=== PATIENT | female | born 1940 | race Caucasian/White ===

== ENCOUNTER 2019-12-20 12:27 | Inpatient (IN) | payer MEDICARE, MEDICAID ==
[2019-12-20] MEDS ORDERED: Ketorolac 30 MG/ML SDV IVPUSH ONE (13:18)
[2019-12-20 13:23] LABS: HEMOGLOBIN A1C 7.5 % (<5.7)
--- NOTE | 2019-12-20 14:43 | EDM.PDOC ---
ED HPI GENERAL MEDICAL PROBLEM - General Stated Complaint: KNEE PAIN Time Seen by Provider: 12/20/19 12:40 Source of Information: Reports: Patient History Limitations: Reports: No Limitations - History of Present Illness INITIAL COMMENTS - FREE TEXT/NARRATIVE: c/o fall pt lives with her brother who cannot walk, pt states she is able to walk, does not use a walker or a cane slept in until late morning, fell trying to get up, daughter tried to get pt up but she could not weight bear, c/o R knee pain pt states she has arthritis in both knees comes into ED in [facility] has no new c/o except R knee pain, pt did see Dr Pablo 3d ago with c/o abd pain and obtained labs (no XR) and put her on Bactrim DS and Flagyl which pt has been taking, pt states she still has pain across her lower abd, is having normal BMs including today, abd pain better after BM no f/c/d at home, no n/v, appetite has been fine - Related Data Allergies Allergy/AdvReac Type Severity Reaction Status Date / Time aspirin Allergy Unknown Nausea and Verified 12/20/19 14:24 Vomiting Penicillins Allergy Unknown Rash Verified 12/20/19 14:24 Home Meds: Home Meds Balsalazide [Colazal] 750 mg PO TID 09/28/14 [History] Levothyroxine 75 mcg PO ACBREAKFAST 09/28/14 [History] Simvastatin 40 mg PO DAILY 09/28/14 [History] carvediloL [Carvedilol] 3.125 mg PO DAILY 09/28/14 [History] Spironolactone [Aldactone] 12.5 mg PO DAILY 10/20/14 [History] FLUoxetine [PROzac] 10 mg PO DAILY 02/04/15 [History] metFORMIN HCl [Metformin HCl] 1,000 mg PO BID 01/12/16 [History] Cyanocobalamin (Vitamin B-12) [Vitamin B-12] 5,000 mcg PO BEDTIME 12/20/19 [History] Multivit-Min/FA/Lycopen/Lutein [Centrum Silver Tablet] 1 tab PO DAILY 12/20/19 [History] Omeprazole 20 mg PO DAILY 12/20/19 [History] SitaGLIPtin [Januvia] 50 mg PO DAILY 06/26/20 [History] Sulfamethoxazole/Trimethoprim [Bactrim Ds Tablet] 1 tab PO BID 12/20/19 [History] hydrOXYzine pamoate [Hydroxyzine Pamoate] 25 mg PO BEDTIME 12/20/19 [History] metroNIDAZOLE [Flagyl] 500 mg PO TID 12/20/19 [History] Past Medical History HEENT History: Reports: Hard of Hearing, Other (See Below) 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 Cardiovascular History: Reports: High Cholesterol, Hypertension, Prior Cardiac Arrest Respiratory History: Reports: Pneumonia, Recurrent Gastrointestinal History: Reports: Irritable Bowel Syndrome, Other (See Below) Other Gastrointestinal History: crohn's Dz Musculoskeletal History: Reports: Fracture Neurological History: Reports: Migraines, Seizure Psychiatric History: Reports: Anxiety, Depression Endocrine/Metabolic History: Reports: Diabetes, Type II, Hypoparathyroidism Oncologic (Cancer) History: Reports: Breast - Past Surgical History Female Surgical History: Reports: Mastectomy Social & Family History - Tobacco Use Smoking Status *Q: Never Smoker - Caffeine Use Caffeine Use: Reports: None - Recreational Drug Use Recreational Drug Use: No ED ROS GENERAL - Review of Systems Review Of Systems: See Below Constitutional: Reports: No Symptoms HEENT: Reports: No Symptoms Respiratory: Reports: No Symptoms Cardiovascular: Reports: No Symptoms Endocrine: Reports: No Symptoms GI/Abdominal: Reports: Abdominal Pain. Denies: Constipation, Diarrhea, Nausea, Vomiting : Reports: No Symptoms Musculoskeletal: Reports: Other (R knee pain) Skin: Reports: No Symptoms Neurological: Reports: No Symptoms Psychiatric: Reports: No Symptoms Hematologic/Lymphatic: Reports: No Symptoms Immunologic: Reports: No Symptoms ED EXAM, GENERAL - Physical Exam Exam: See Below Exam Limited By: No Limitations General Appearance: Alert, WD/WN, No Apparent Distress Ears: Normal External Exam, Normal Canal, Hearing Grossly Normal Nose: Normal Inspection, Normal Mucosa, No Blood Throat/Mouth: Normal Inspection, Normal Voice, No Airway Compromise Head: Atraumatic, Normocephalic Neck: Normal Inspection, Supple, Non-Tender, Full Range of Motion. No: Lymphadenopathy (R), Lymphadenopathy (L) Respiratory/Chest: No Respiratory Distress, Lungs Clear, Normal Breath Sounds, No Accessory Muscle Use, Chest Non-Tender Cardiovascular: Regular Rate, Rhythm, No Edema, No Gallop, No JVD, No Rub, Other (2/6 ESAU at LSB) GI/Abdominal: Normal Bowel Sounds, Soft, Other (1+ tender in the suprapubic area, slight tender in LLQ, NT elsewhere, ND). No: Distended, Guarding, Rigid, Rebound, Hepatomegaly, Splenomegaly Back Exam: Normal Inspection, Full Range of Motion. No: CVA Tenderness (R), CVA Tenderness (L) Extremities: No Pedal Edema, Other (moderate effusion at R knee, generalized tender anteriorly as well as medial and lateral, no ecchymosis, no definite localized bony tenderness) Neurological: Alert, Oriented, CN II-XII Intact, No Motor/Sensory Deficits Psychiatric: Normal Affect, Normal Mood Skin Exam: Warm, Dry, Intact, Normal Color, No Rash Lymphatic: No Adenopathy Course - Vital Signs Last Recorded V/S: Last Vital Signs Temp 36.0 C L 12/20/19 12:27 Pulse 79 12/20/19 12:27 Resp 16 12/20/19 12:27 BP 104/58 L 12/20/19 12:27 Pulse Ox 94 L 12/20/19 12:27 - Orders/Labs/Meds Orders: Active Orders 24 hr Category Date Time Status Abdomen Pelvis wo Cont [CT] Stat Exams 12/20/19 13:34 Taken Knee 3V Rt [CR] Stat Exams 12/20/19 12:38 Ordered Sodium Chloride 0.9% [Saline Flush] Med 12/20/19 14:22 Active 10 ml FLUSH ASDIRECTED PRN Medication Orders Sodium Chloride (Saline Flush) 10 ml FLUSH ASDIRECTED PRN PRN Reason: Keep Vein Open Labs: Laboratory Tests 12/20/19 12/20/19 12/20/19 Range/Units 13:05 13:05 13:05 WBC (4.5-12.0) X10-3/uL RBC (3.23-5.20) x10(6)uL Hgb (11.5-15.5) g/dL Hct (30.0-51.3) % MCV (80-96) fL MCH (27.7-33.6) pg MCHC (32.2-35.4) g/dL RDW (11.5-15.5) % Plt Count (125-369) X10(3)uL MPV (7.4-10.4) fL Neut % (Auto) (46-82) % Lymph % (Auto) (13-37) % [place] % (Auto) (4-12) % Eos % (Auto) (1.0-5.0) % Baso % (Auto) (0-2) % Neut # (Auto) (1.6-8.3) # Lymph # (Auto) (0.6-5.0) # [place] # (Auto) (0.0-1.3) # Eos # (Auto) (0.0-0.8) # Baso # (Auto) (0.0-0.2) # Sodium 132 L (135-145) mmol/L Potassium 3.6 (3.5-5.3) mmol/L Chloride 97 L (100-110) mmol/L Carbon Dioxide 23 (21-32) mmol/L BUN 6 L (7-18) mg/dL Creatinine 1.0 (0.55-1.02) mg/dL Est Cr Clr Drug Dosing TNP Estimated GFR (MDRD) 54 L (>60) BUN/Creatinine Ratio 6.0 L (9-20) Glucose 256 H (80-116) mg/dL Hemoglobin A1c 7.5 H (<5.7) % Calcium 8.5 L (8.6-10.2) mg/dL Total Bilirubin 0.4 (0.1-1.3) mg/dL AST 21 (5-25) IU/L ALT 18 (12-36) U/L Alkaline Phosphatase 108 (56-112) IU/L Troponin I (4.0-60.3) pg/mL C-Reactive Protein 12.1 H* (0.5-0.9) mg/dL Total Protein 7.4 (6.0-8.0) g/dL Albumin 2.9 L (3.2-4.6) g/dL Globulin 4.5 g/dL Albumin/Globulin Ratio 0.6 Urine Color (YELLOW) Urine Appearance (CLEAR) Urine pH (5.0-6.5) Ur Specific [place] (1.010-1.025) Urine Protein (NEGATIVE) mg/dL Urine Glucose (UA) (NORMAL) mg/dL Urine Ketones (NEGATIVE) mg/dL Urine Occult Blood (NEGATIVE) Urine Nitrite (NEGATIVE) Urine Bilirubin (NEGATIVE) Urine Urobilinogen (NEGATIVE) mg/dL Ur Leukocyte Esterase (NEGATIVE) U Hyaline Cast (Auto) (NS) Urine RBC (0-5) Urine WBC (0-5) Ur Squamous Epith Cells (NS,R,O) Urine Bacteria (NS) 12/20/19 12/20/19 12/20/19 Range/Units 13:05 13:05 14:36 WBC 8.8 (4.5-12.0) X10-3/uL RBC 4.28 (3.23-5.20) x10(6)uL Hgb 11.7 (11.5-15.5) g/dL Hct 36.5 (30.0-51.3) % MCV 85.2 (80-96) fL MCH 27.4 L (27.7-33.6) pg MCHC 32.2 (32.2-35.4) g/dL RDW 13.6 (11.5-15.5) % Plt Count 380 H (125-369) X10(3)uL MPV 7.8 (7.4-10.4) fL Neut % (Auto) 68.8 (46-82) % Lymph % (Auto) 18.1 (13-37) % [place] % (Auto) 12.1 H (4-12) % Eos % (Auto) 0 L (1.0-5.0) % Baso % (Auto) 1 (0-2) % Neut # (Auto) 6.0 (1.6-8.3) # Lymph # (Auto) 1.6 (0.6-5.0) # [place] # (Auto) 1.1 (0.0-1.3) # Eos # (Auto) 0.0 (0.0-0.8) # Baso # (Auto) 0.1 (0.0-0.2) # Sodium (135-145) mmol/L Potassium (3.5-5.3) mmol/L Chloride (100-110) mmol/L Carbon Dioxide (21-32) mmol/L BUN (7-18) mg/dL Creatinine (0.55-1.02) mg/dL Est Cr Clr Drug Dosing Estimated GFR (MDRD) (>60) BUN/Creatinine Ratio (9-20) Glucose (80-116) mg/dL Hemoglobin A1c (<5.7) % Calcium (8.6-10.2) mg/dL Total Bilirubin (0.1-1.3) mg/dL AST (5-25) IU/L ALT (12-36) U/L Alkaline Phosphatase (56-112) IU/L Troponin I 10.8 (4.0-60.3) pg/mL C-Reactive Protein (0.5-0.9) mg/dL Total Protein (6.0-8.0) g/dL Albumin (3.2-4.6) g/dL Globulin g/dL Albumin/Globulin Ratio Urine Color Yellow (YELLOW) Urine Appearance Clear (CLEAR) Urine pH 5.0 (5.0-6.5) Ur Specific [place] 1.015 (1.010-1.025) Urine Protein Negative (NEGATIVE) mg/dL Urine Glucose (UA) >1000 H (NORMAL) mg/dL Urine Ketones 15 H (NEGATIVE) mg/dL Urine Occult Blood Trace (NEGATIVE) Urine Nitrite Negative (NEGATIVE) Urine Bilirubin Negative (NEGATIVE) Urine Urobilinogen Normal (NEGATIVE) mg/dL Ur Leukocyte Esterase Small H (NEGATIVE) U Hyaline Cast (Auto) Rare H (NS) Urine RBC 0-5 (0-5) Urine WBC 0-5 (0-5) Ur Squamous Epith Cells Rare (NS,R,O) Urine Bacteria Few H (NS) Meds: Medications Generic Name Dose Route Start Last Admin Trade Name Freq PRN Reason Stop Dose Admin Sodium Chloride 10 ml 12/20/19 14:22 Saline Flush FLUSH ASDIRECTED PRN Keep Vein Open Discontinued Medications Generic Name Dose Route Start Last Admin Trade Name Freq PRN Reason Stop Dose Admin Ketorolac Tromethamine 15 mg 12/20/19 13:18 12/20/19 14:17 Toradol IVPUSH 12/20/19 13:19 15 mg ONETIME ONE Administration - Re-Assessments/Exams Free Text/Narrative Re-Assessment/Exam: 12/20/19 15:51 d/w Dr Pablo who accepted her in admission and will see her at 5p after clinic d/w dtr Faby at [phone] Pablo to call her after he does an assessment R knee film with no fx, large effusion and DJD as per Dr Caldwell. Faby reports that pt had been getting injections and that the possibility of TKR had been discussed CT abd/pelvis with IV contrast shows acute diverticulitis without abscess Faby aware that an internal joint derangement cannot be excluded Faby reports that pt "was not tolerating" her current antbxs pt states she is a full code Departure - Departure Time of Disposition: 15:54 Disposition: Admitted As Inpatient 68 Condition: Fair Clinical Impression: Acute diverticulitis, Elevated C-reactive protein (CRP), Right knee sprain, Fall from bed, initial encounter, General weakness, Unable to stand up, Unable to walk, Hyponatremia, Hypoalbuminemia, Dehydration, Ketonuria, Thrombocytosis, Effusion, right knee - Discharge Information *PRESCRIPTION DRUG MONITORING PROGRAM REVIEWED*: Not Applicable *COPY OF PRESCRIPTION DRUG MONITORING REPORT IN PATIENT HONEY: Not Applicable Referrals: Eric Lopez MD [Primary Care Provider] - Sepsis Event Note (ED) - Evaluation Sepsis Screening Result: No Definite Risk - Focused Exam Vital Signs: Vital Signs Temp Pulse Resp BP Pulse Ox 12/20/19 12:27 36.0 C L 79 16 104/58 L 94 L - My Orders Last 24 Hours: My Active Orders 12/20/19 12:38 Knee 3V Rt [CR] Stat 12/20/19 13:34 Abdomen Pelvis wo Cont [CT] Stat 12/20/19 14:22 Sodium Chloride 0.9% [Saline Flush] 10 ml FLUSH ASDIRECTED PRN - Assessment/Plan Last 24 Hours: My Active Orders 12/20/19 12:38 Knee 3V Rt [CR] Stat 12/20/19 13:34 Abdomen Pelvis wo Cont [CT] Stat 12/20/19 14:22 Sodium Chloride 0.9% [Saline Flush] 10 ml FLUSH ASDIRECTED PRN
[2019-12-20] MEDS ORDERED: Ondansetron 4 MG/2 ML SDV IVPUSH PRN (16:01)
[2019-12-20] MEDS: Sodium Chloride 0.9% 10 ML Syringe FLUSH PRN (16:20)
--- NOTE | 2019-12-20 16:41 | CT ---
INDICATION: Diagnosis is acute diverticulitis 3 days ago in clinic, on antibiotics. Fell today, still lower abdominal pain, left lower quadrant. COMPUTERIZED TOMOGRAPHY OF THE ABDOMEN AND PELVIS WITHOUT CONTRAST: Spiral 2.5 mm axial sections were obtained through the abdomen without contrast with sagittal and coronal reconstructions 12/20/19 - no comparisons. Total exam DLP was 679.21 mGy-cm. No consolidating pneumonia or effusion was seen at the lower lung skelton and pleural spaces included on this study. There are some minimal probable fibrotic changes at the lung bases, very minimal on the left and more prominent on the right - minimal patchy pneumonia is difficult to exclude on the right. Some minimal calcified pleural plaque is noted on the right at the lung base- diaphragm. The heart is enlarged. Minimal thickening of the pericardium is noted. Calcifications are noted in the aorta. No aneurysmal dilatation of the aorta was noted. The kidneys have a fairly normal appearance without evidence of obstructive uropathy. The gallbladder is absent, compatible with history of its removal with clips at the cystic duct. The liver, spleen, and for the most part pancreas, appeared normal. Adrenal glands were unremarkable. No retroperitoneal mass was seen. Retroperitoneal lymphadenopathy is mild and nonspecific. The appendix is absent, compatible with history of its removal. No evidence of bowel obstruction or free air was noted. There was a right inguinal hernia including only fat of small to moderate size. Urinary bladder was unremarkable. At the level of the sigmoid colon in the midline and to the right slightly, there is some fat stranding with thickening of the wall, suggesting a very localized area of diverticulitis. No evidence of definite abscess formation was seen, although there does appear to be some minimal fluid extending towards the right inguinal area slightly. No additional fluid collections, organomegaly or mass lesions were identified in the abdomen or pelvis. IMPRESSION: 1. Localized area of sigmoid diverticulitis with some very minimal localized pericolonic inflammatory disease - localized peritonitis with some minimal extension towards the right inguinal area. No abscess formation seen - no free air seen. 2. Patient is post cholecystectomy, appendectomy and right mastectomy with some probable fibrotic changes at the right lung base. 3. Minimal ASD. 4. ASHD with cardiomegaly. Report was called to Dr. Lebron at 1518 hours. [facility]
[2019-12-20] MEDS: D5 1/2 NS w/ 20 mEq/L KCl 1,000 ML IV SCH (16:44)
--- NOTE | 2019-12-20 16:44 | CR ---
INDICATION: Fall, pain and swelling, not able to weight-bear. RIGHT KNEE: Four images of the right knee were obtained 12/20/19 - no comparisons. A large knee joint effusion is suggested - increased density is noted in the suprapatellar bursa. There are some minimal hypertrophic degenerative changes at the patellofemoral joint with some narrowing of the lateral patellofemoral joint space of minimal degree. A definite acute fracture or dislocation was not identified. Bone density appeared to be fairly normal. IMPRESSION: Large right knee joint effusion. Report was called to Dr. Lebron at 1518 hours. [facility]
[2019-12-20] MEDS: Enoxaparin 40 MG/0.4 ML Syringe SUBCUT SCH (17:15)
[2019-12-20] MEDS: metFORMIN 1,000 MG Tab PO SCH (21:20)
[2019-12-20] MEDS: Cyanocobalamin (Vitamin B12) 1,000 MCG Tab PO SCH (21:20)
[2019-12-20] MEDS: hydrOXYzine HCl 25 MG Tab PO SCH (21:20)
[2019-12-21] MEDS: D5 1/2 NS w/ 20 mEq/L KCl 1,000 ML IV SCH ×2 (01:29→12:07)
[2019-12-21] MEDS: Levothyroxine 75 MCG Tab PO SCH (06:16)
[2019-12-21] MEDS: Pantoprazole 40 MG Tab.CR PO SCH (06:16)
[2019-12-21] MEDS: Spironolactone 25 MG Tab PO SCH (08:23)
[2019-12-21] MEDS: metFORMIN 1,000 MG Tab PO SCH ×2 (08:24→21:11)
[2019-12-21] MEDS: FLUoxetine 10 MG Cap PO SCH (08:26)
[2019-12-21] MEDS: Simvastatin 40 MG Tab PO SCH (08:26)
[2019-12-21] MEDS: Multivitamins with Iron/Calcium/Folic Acid/Minerals Tab PO SCH (08:26)
[2019-12-21] MEDS: Carvedilol 3.125 MG Tab PO SCH (08:27)
[2019-12-21] MEDS: metroNIDAZOLE/Normal Saline 500 MG in Premix Bag 1 BAG IV SCH ×2 (09:50→16:10)
[2019-12-21] MEDS ORDERED: Levofloxacin/Dextrose 5%-Water 500 MG in Premix Bag 1 BAG IV SCH (10:00)
[2019-12-21] MEDS: Levofloxacin/Dextrose 5%-Water 250 MG in Premix Bag 1 BAG IV SCH (10:55)
[2019-12-21] MEDS: predniSONE 20 MG Tab PO SCH (12:07)
--- NOTE | 2019-12-21 12:52 | PN ---
DATE SEEN: 12/21/2019 SUBJECTIVE: Jailyn Horta is a 79-year-old female admitted due to concerns acute right knee pain with soft tissue swelling and effusion, unresponsive left lower quadrant pain, and diverticulitis. CT confirmatory. Feeling some better. Pain is improved. Has stool. There has been no fever or other constitutional symptoms. Pain continues in right knee. OBJECTIVE: VITAL SIGNS: 36.7, 80, 110/55, 73 mean blood pressure, 16 is the respirations, and O2 saturation 95%. GENERAL: Appears more comfortable. HEENT: Mouth and oropharynx are clear. NECK: Benign. Thyroid small. CHEST: On auscultation, clear in all lung skelton. HEART: Occasional ectopy. Soft murmur. ABDOMEN: Mild persistent left lower quadrant pain. EXTREMITIES: Knee less warm. ASSESSMENT: 1. Acute diverticulitis. 2. Acute knee pain. PLAN: We will add a course of prednisone. Uric acid was normal. Inflammatory is likely the more issue than infectious. Complementary care and well being. Continue antibiotic therapy. /[id number] /WILIAN
[2019-12-21] MEDS: Acetaminophen 500 MG Tab PO SCH ×2 (13:21→21:11)
[2019-12-21] MEDS: Enoxaparin 40 MG/0.4 ML Syringe SUBCUT SCH (16:10)
[2019-12-21] MEDS: hydrOXYzine HCl 25 MG Tab PO SCH (21:03)
[2019-12-21] MEDS: Cyanocobalamin (Vitamin B12) 1,000 MCG Tab PO SCH (21:03)
[2019-12-21] MEDS: Diclofenac Sodium 1% Gel 100 GM Tube TOP SCH (21:51)
[2019-12-22] MEDS: D5 1/2 NS w/ 20 mEq/L KCl 1,000 ML IV SCH ×2 (00:28→08:35)
[2019-12-22] MEDS: metroNIDAZOLE/Normal Saline 500 MG in Premix Bag 1 BAG IV SCH ×3 (00:33→16:01)
[2019-12-22] MEDS: Pantoprazole 40 MG Tab.CR PO SCH (06:22)
[2019-12-22] MEDS: Levothyroxine 75 MCG Tab PO SCH (06:22)
[2019-12-22] MEDS: Acetaminophen 500 MG Tab PO SCH ×3 (08:07→20:59)
[2019-12-22] MEDS: Diclofenac Sodium 1% Gel 100 GM Tube TOP SCH ×2 (08:09→21:05)
[2019-12-22] MEDS: metFORMIN 1,000 MG Tab PO SCH ×2 (08:09→21:03)
[2019-12-22] MEDS: Spironolactone 25 MG Tab PO SCH (08:09)
[2019-12-22] MEDS: Carvedilol 3.125 MG Tab PO SCH (08:10)
[2019-12-22] MEDS: Simvastatin 40 MG Tab PO SCH (08:11)
[2019-12-22] MEDS: Multivitamins with Iron/Calcium/Folic Acid/Minerals Tab PO SCH (08:11)
[2019-12-22] MEDS: FLUoxetine 10 MG Cap PO SCH (08:11)
[2019-12-22] MEDS: predniSONE 20 MG Tab PO SCH (08:16)
[2019-12-22] MEDS: Levofloxacin/Dextrose 5%-Water 250 MG in Premix Bag 1 BAG IV SCH (09:45)
[2019-12-22] MEDS: Sodium Chloride 0.9% 10 ML Syringe FLUSH PRN ×2 (10:00→15:57)
[2019-12-22] MEDS: Enoxaparin 40 MG/0.4 ML Syringe SUBCUT SCH (15:52)
[2019-12-22] MEDS: hydrOXYzine HCl 25 MG Tab PO SCH (20:59)
[2019-12-22] MEDS: Cyanocobalamin (Vitamin B12) 1,000 MCG Tab PO SCH (20:59)
[2019-12-23] MEDS: metroNIDAZOLE/Normal Saline 500 MG in Premix Bag 1 BAG IV SCH ×3 (00:28→17:23)
[2019-12-23] MEDS: Pantoprazole 40 MG Tab.CR PO SCH (06:26)
[2019-12-23] MEDS: Levothyroxine 75 MCG Tab PO SCH (06:26)
[2019-12-23] MEDS: Sodium Chloride 0.9% 10 ML Syringe FLUSH PRN ×2 (09:25→17:23)
[2019-12-23] MEDS: predniSONE 20 MG Tab PO SCH (09:31)
[2019-12-23] MEDS: Acetaminophen 500 MG Tab PO SCH ×3 (09:31→20:59)
[2019-12-23] MEDS: FLUoxetine 10 MG Cap PO SCH (09:33)
[2019-12-23] MEDS: Simvastatin 40 MG Tab PO SCH (09:33)
[2019-12-23] MEDS: Spironolactone 25 MG Tab PO SCH (09:33)
[2019-12-23] MEDS: metFORMIN 1,000 MG Tab PO SCH ×2 (09:33→18:52)
[2019-12-23] MEDS: Carvedilol 3.125 MG Tab PO SCH (09:34)
[2019-12-23] MEDS: Multivitamins with Iron/Calcium/Folic Acid/Minerals Tab PO SCH (09:34)
[2019-12-23] MEDS: Diclofenac Sodium 1% Gel 100 GM Tube TOP SCH ×2 (09:36→21:01)
[2019-12-23] MEDS: Levofloxacin/Dextrose 5%-Water 250 MG in Premix Bag 1 BAG IV SCH (10:40)
[2019-12-23] MEDS: Enoxaparin 40 MG/0.4 ML Syringe SUBCUT SCH (17:23)
[2019-12-23] MEDS: hydrOXYzine HCl 25 MG Tab PO SCH (20:59)
[2019-12-23] MEDS: Cyanocobalamin (Vitamin B12) 1,000 MCG Tab PO SCH (21:00)
[2019-12-24] MEDS: metroNIDAZOLE/Normal Saline 500 MG in Premix Bag 1 BAG IV SCH ×2 (00:30→08:44)
[2019-12-24] MEDS: Sodium Chloride 0.9% 10 ML Syringe FLUSH PRN (01:32)
--- NOTE | 2019-12-24 01:57 | HP ---
ADMISSION DATE: 12/20/2019 REASON FOR VISIT: Persistent left lower quadrant pain secondary to diverticulitis, acute right knee pain. HISTORY OF PRESENT ILLNESS: Jailyn Horta is a 79-year-old female, admitted through [facility]. She was seen a few days ago with left lower quadrant pain and acute suspected diverticulitis clinically without complicating processes or fever. Has been on oral Bactrim and metronidazole. Had a fall, lives with her brother, fell onto a hard floor, but not a dramatic injury. Pain and discomfort were present. Injury was self-limiting in nature. MEDICATIONS: Present daily medications include: 1. Bactrim DS 1 p.o. b.i.d. for diverticulitis. 2. Flagyl 500 mg 1 p.o. t.i.d. for diverticulitis. 3. Colazal 750 one p.o. t.i.d. for colitis. 4. Fluoxetine 10 mg 1 p.o. daily for mood stabilizer. 5. Vistaril 25 t.i.d. p.r.n. for anxiety. 6. Januvia 50 mg 1 p.o. daily for NIDDM. 7. Levothyroxine 75 mcg 1 p.o. daily for hypothyroidism. 8. Metformin 1000 mg 1 p.o. b.i.d. for NIDDM. 9. Carvedilol 3.125 mg b.i.d. for heart failure. 10.Prilosec 20 mg 1 p.o. daily for GERD. 11.Zocor 40 mg 1 p.o. daily for hyperlipidemia. 12.Aldactone 25 mg half tablet once daily for fluid/heart. 13.Voltaren gel p.r.n. knees. 14.Albuterol inhaler p.r.n. PAST HEALTH: Significant for surgical procedures including previous cervical disk surgery, cholecystectomy, section, appendectomy, right breast mastectomy, left breast biopsy benign, and bilateral cataract surgery. Chronic illnesses include hypertension, hyperlipidemia, and diabetes mellitus. SOCIAL HISTORY: Lives with her brother. Attended to by her niece. Never smoked. No chewing tobacco. No alcohol consumption. FAMILY HISTORY: Negative for early heart disease, diabetes mellitus, or inheritable cancers. REVIEW OF SYSTEMS: CONSTITUTIONAL: Feeling poorly. Right knee pain. Left abdominal pain. EYES: Sees well. Cataract surgery. EARS: Some difficulty in crowds. Mild tinnitus. OROPHARYNX: Intact dentition. GASTROINTESTINAL: Chronic colitis, stable. GENITOURINARY: Voiding comfortably. CARDIOVASCULAR: Denies chest pain, palpitations, or history of congestive heart failure. RESPIRATORY: No chronic cough. GASTROINTESTINAL: Left lower abdominal pain. SKIN: No lesions, eruptions, or moles. ENDOCRINE: No excessive thirst or urination. ALLERGIES: Noted. PHYSICAL EXAMINATION: VITAL SIGNS: 1.5 meters, 72 kg, 36.7, 70, 112/61, 16, and 95%. GENERAL: Appears comfortable. Soft spoken. Intelligible. HEENT: Funduscopic benign. Conjunctivae clear. Bright tympanic membranes. Clear nasal discharge. Mouth and oropharynx are clear. NECK: Benign. Thyroid small. CHEST: On auscultation, clear in all lung skelton. HEART: Occasional ectopy. Soft murmur. Regular rate and rhythm. ABDOMEN: Benign. Surgical scars present in right lower quadrant/lower abdomen. Acutely tender left lower quadrant without rebound. No right lower quadrant pain. PELVIC AND RECTAL: Deferred. EXTREMITIES: Well perfused. NEUROMUSCULAR: Intact. LABORATORY STUDIES: White count 8800, hemoglobin 7.7, and platelets 380. Electrolytes satisfactory. Sodium 132, chloride 97, BUN 6, creatinine 1, and GFR 54. Glucose is 256. CRP 12.1. Urine noted 4+ glucose, no other pathology. RADIOGRAPHS: CT abdomen revealed acute diverticulitis. Radiograph with right knee degenerative changes. ASSESSMENT: 1. Acute diverticulitis, unresponsive to therapy. 2. Acute right knee pain, origin undetermined. PLAN: We will admit to hospital IV. Therapy including IV Cipro, Levaquin IV, metronidazole, acute care intervention, knee pain, and presentation to follow. /[id number] RADU/WILIAN
--- NOTE | 2019-12-24 01:57 | PN ---
DATE SEEN: 12/23/2019 SUBJECTIVE: Jailyn Horta is a 79-year-old female admitted with acute diverticulitis and a red hot knee. Knee anatomy and cause uncertain. Responding to low-dose prednisone. Feels her pain is much better. Still some discomfort and well-being. Passing stool comfortably. LABORATORY STUDIES: None since 12/22/2019. Glucose is 227, 242, and 101. OBJECTIVE: VITAL SIGNS: 36.3, 85, 121/69, respirations 18, and O2 saturation 96% room air. GENERAL: Appears comfortable. Mouth and oropharynx are clear and non-dry. NECK: Benign. No JVD. No carotid bruits. CHEST: Clear all lung skelton. HEART: No ectopy or murmur. ABDOMEN: A bit tender but less so over left lower quadrant. EXTREMITIES: Knee is less warm, effusion improving. ASSESSMENT: 1. Synovitis of right knee, improved. 2. Diverticulitis. PLAN: We will continue IV dual drug antibiotic therapy in the interim, plan discharge tomorrow. /[id number] /WILIAN
[2019-12-24 02:07] VITALS: PULSE 69
--- NOTE | 2019-12-24 03:35 | PN ---
DATE SEEN: 12/22/2019 SUBJECTIVE: Jailyn Horta is a 79-year-old female admitted for 2 concerns; acute right knee pain, inflammatory, not gouty, and mild DJD. Primary issue of course is left lower quadrant pain, acute diverticulitis. CT scan confirmed. States her pain is about 50% better. Appetite has been improving. Has been afebrile. Right knee pain better. Not ambulating as of yet. PT will see her upcoming. LABORATORY STUDIES: None recent. CBC and panel 8 will be performed today. Sugars 196, 228, 171, 160. MEDICATIONS: 1. Diabetes meds on board, include metformin 1000 mg 1 p.o. b.i.d., Januvia 50 mg one p.o. daily. 2. Cardioprotective medications. PHYSICAL EXAMINATION: VITAL SIGNS: 36.1, 76, 128/72, respirations 16, O2 sat 99%. GENERAL: Appears much more comfortable and knitting. NECK: Benign. No JVD. Thyroid small. CHEST: On auscultation, clear in all lung skelton. HEART: On auscultation, occasional ectopy, soft murmur. ABDOMEN: Much less tender in right lower quadrant. EXTREMITIES: Knee on palpation less warm. ASSESSMENT: Diverticulitis, improving. Synovitis, improving. PLAN: PT referral on Monday, continue IV levofloxacin and metronidazole, expectation of early discharge. /[id number] RADU/WILIAN
[2019-12-24] MEDS: Levothyroxine 75 MCG Tab PO SCH (05:36)
[2019-12-24] MEDS: Pantoprazole 40 MG Tab.CR PO SCH (05:36)
[2019-12-24] MEDS: Simvastatin 40 MG Tab PO SCH (08:36)
[2019-12-24] MEDS: Spironolactone 25 MG Tab PO SCH (08:37)
[2019-12-24] MEDS: Multivitamins with Iron/Calcium/Folic Acid/Minerals Tab PO SCH (08:37)
[2019-12-24] MEDS: predniSONE 20 MG Tab PO SCH (08:37)
[2019-12-24] MEDS: Carvedilol 3.125 MG Tab PO SCH (08:37)
[2019-12-24] MEDS: metFORMIN 1,000 MG Tab PO SCH (08:37)
[2019-12-24] MEDS: Acetaminophen 500 MG Tab PO SCH (08:37)
[2019-12-24] MEDS: FLUoxetine 10 MG Cap PO SCH (08:37)
[2019-12-24 08:39] VITALS: BP 133/80
[2019-12-24] MEDS: Diclofenac Sodium 1% Gel 100 GM Tube TOP SCH (08:39)
[2019-12-24] MEDS: Levofloxacin/Dextrose 5%-Water 250 MG in Premix Bag 1 BAG IV SCH (11:21)
--- NOTE | 2019-12-24 14:37 | DISCH ---
DISCHARGE DATE: 12/24/2019 HISTORY OF PRESENT ILLNESS: Jailyn Horta is a delightful 79-year-old female, admitted through [facility]. Increasing symptoms of left lower quadrant pain, acute suspected diverticulitis, unresponsive to oral antibiotic therapy. Been on Bactrim and metronidazole. She also had a fall and injured her knee with troublesome swelling. Please see admitting history and physical and clinical findings. DIAGNOSTIC STUDIES: CT revealed acute diverticulitis with some inflammatory changes, but no abscess, absent gallbladder, absent appendix, right mastectomy, mild ASHD. Plain films of the knee revealed mild DJD. Laboratory studies revealed markedly elevated white count. HOSPITAL COURSE: The patient is admitted to the hospital and is treated. She was started on intravenous antibiotics including levothyroxine 250 mcg 1 daily, metronidazole 500 mg q.8 hours, and oral prednisone. Uric acid was performed. No signs of gout. Pain resolved, knee pain resolved, belly pain resolved, fever defervesced, and white count returned to normal. DISCHARGE PHYSICAL EXAMINATION: VITAL SIGNS: 36.3, 117/65, pulse of 92, respirations 16, O2 saturation 95%. HEENT: Unremarkable. NECK: Supple. Thyroid small. CHEST: Clear in all lung skelton. No adventitious sounds. HEART: No ectopy or murmur. ABDOMEN: Marked improvement in left lower quadrant pain, minimal. Good bowel sounds. Surgical scars well healed. EXTREMITIES: Well perfused. Warmth and redness of the right knee resolved. PLAN: Discharge home on Bactrim and metronidazole. Complementary care and well being. Followup in 3 weeks time. /[id number] [facility]/WILIAN
== END 2019-12-24 12:30 | disposition home or self-care (01) | DRG 392 ==
LOC: FB.ED 12:27 → UNDOADMIN 15:41 → FB.MS 15:41
PROVIDERS: ADMIT Family Medicine; ATTEND Family Medicine
DX: K57.92 Diverticulitis of intestine, part unspecified, without perforation or abscess without bleeding (principal); R79.82 Elevated C-reactive protein (CRP); S83.91XA Sprain of unspecified site of right knee, initial encounter; M25.461 Effusion, right knee; W06.XXXA Fall from bed, initial encounter; R53.1 Weakness; E87.1 Hypo-osmolality and hyponatremia; E86.0 Dehydration; R82.4 Acetonuria; D47.3 Essential (hemorrhagic) thrombocythemia; H91.90 Unspecified hearing loss, unspecified ear; K57.32 Diverticulitis of large intestine without perforation or abscess without bleeding; M17.11 Unilateral primary osteoarthritis, right knee; I10 Essential (primary) hypertension; Z86.74 Personal history of sudden cardiac arrest; E78.5 Hyperlipidemia, unspecified; K50.90 Crohn's disease, unspecified, without complications; E11.9 Type 2 diabetes mellitus without complications; H91.92 Unspecified hearing loss, left ear; E78.00 Pure hypercholesterolemia, unspecified; G43.909 Migraine, unspecified, not intractable, without status migrainosus; F41.9 Anxiety disorder, unspecified; Z90.10 Acquired absence of unspecified breast and nipple; F32.9 Major depressive disorder, single episode, unspecified; M65.861 Other synovitis and tenosynovitis, right lower leg; Z79.899 Other long term (current) drug therapy; E20.9 Hypoparathyroidism, unspecified; Z85.3 Personal history of malignant neoplasm of breast; Z87.01 Personal history of pneumonia (recurrent); Z79.890 Hormone replacement therapy; Z90.49 Acquired absence of other specified parts of digestive tract; Z98.41 Cataract extraction status, right eye; Z98.42 Cataract extraction status, left eye; Z90.11 Acquired absence of right breast and nipple; Z88.6 Allergy status to analgesic agent; Z88.0 Allergy status to penicillin; Z79.84 Long term (current) use of oral hypoglycemic drugs
CPT/HCPCS: 36415; 73562; 74176; 80053; 81001; 83036; 84484; 84550; 85025; 86140; 96374; 99285 ×2; J1885; 80048; 82962; 97161-GP; A9270-GY; J1650; J1956; J3480; J3490; J7512; U0002

== ENCOUNTER 2020-09-27 22:20 | Emergency (ER) | payer MEDICARE, MEDICAID ==
[2020-09-27] MEDS ORDERED: Nitroglycerin 0.4 MG Tab.SL SL PRN (22:24)
[2020-09-27 23:37] VITALS: BP 126/61; PULSE 79
--- NOTE | 2020-09-27 23:39 | EDM.PDOC ---
ED HPI GENERAL MEDICAL PROBLEM - General Chief Complaint: Gastrointestinal Problem Stated Complaint: Epigastric and chest pain Time Seen by Provider: 09/27/20 22:50 Source of Information: Reports: Patient, Family History Limitations: Reports: No Limitations - History of Present Illness INITIAL COMMENTS - FREE TEXT/NARRATIVE: Patient presented to the ED because of epigastric and chest pain which started 3 days ago. The pain is sharp and burning,3/10. There is no nausea,vomiting, no dyspnea.Denies any fever, chills, cough or cold. - Related Data Allergies Allergy/AdvReac Type Severity Reaction Status Date / Time aspirin Allergy Unknown Nausea and Verified 09/27/20 22:45 Vomiting Penicillins Allergy Unknown Rash Verified 09/27/20 22:45 Home Meds: Home Meds Levothyroxine 75 mcg PO ACBREAKFAST 09/28/14 [History] Simvastatin 40 mg PO DAILY 09/28/14 [History] carvediloL [Carvedilol] 3.125 mg PO DAILY 09/28/14 [History] Spironolactone [Aldactone] 12.5 mg PO DAILY 10/20/14 [History] FLUoxetine [PROzac] 10 mg PO DAILY 02/04/15 [History] metFORMIN HCl [Metformin HCl] 1,000 mg PO BID 01/12/16 [History] Cyanocobalamin (Vitamin B-12) [Vitamin B-12] 5,000 mcg PO BEDTIME 12/20/19 [History] Multivit-Min/FA/Lycopen/Lutein [Centrum Silver Tablet] 1 tab PO DAILY 12/20/19 [History] Omeprazole 20 mg PO DAILY 12/20/19 [History] SitaGLIPtin [Januvia] 50 mg PO DAILY 12/20/19 [History] hydrOXYzine pamoate [Hydroxyzine Pamoate] 25 mg PO BEDTIME 12/20/19 [History] Acetaminophen [Tylenol Extra Strength] 1,000 mg PO TID PRN 09/27/20 [History] Balsalazide [Colazal] 750 mg PO TID 09/27/20 [History] Past Medical History HEENT History: Reports: Hard of Hearing, Other (See Below) 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 Cardiovascular History: Reports: Heart Failure, High Cholesterol, Hypertension, Prior Cardiac Arrest Respiratory History: Reports: Pneumonia, Recurrent Gastrointestinal History: Reports: Diverticulosis, Irritable Bowel Syndrome, Other (See Below) Other Gastrointestinal History: crohn's Dz [employer] History: Reports: Musculoskeletal History: Reports: Fracture Neurological History: Reports: Migraines, Seizure Psychiatric History: Reports: Anxiety, Depression Endocrine/Metabolic History: Reports: Diabetes, Type II, Hypoparathyroidism Oncologic (Cancer) History: Reports: Breast - Past Surgical History Female Surgical History: Reports: Mastectomy Oncologic Surgical History: Reports: Mastectomy Other Oncologic Surgeries/Procedures: right mastectomy 2004 Social & Family History - Family History Family Medical History: No Pertinent Family History - Tobacco Use Tobacco Use Status *Q: Never Tobacco User Second Hand Smoke Exposure: No - Caffeine Use Caffeine Use: Reports: Coffee - Recreational Drug Use Recreational Drug Use: No ED ROS GENERAL - Review of Systems Review Of Systems: See Below Constitutional: Reports: No Symptoms HEENT: Reports: No Symptoms Respiratory: Reports: No Symptoms Cardiovascular: Reports: Chest Pain Endocrine: Reports: No Symptoms GI/Abdominal: Reports: Abdominal Pain : Reports: No Symptoms Musculoskeletal: Reports: No Symptoms Skin: Reports: No Symptoms Neurological: Reports: No Symptoms Psychiatric: Reports: No Symptoms ED EXAM, GENERAL - Physical Exam Exam: See Below Exam Limited By: No Limitations General Appearance: Alert, No Apparent Distress Ears: Normal External Exam, Normal Canal, Hearing Grossly Normal Nose: Normal Inspection, Normal Mucosa, No Blood Throat/Mouth: Normal Inspection, Normal Lips Head: Atraumatic, Normocephalic Neck: Normal Inspection, Supple, Non-Tender, Full Range of Motion Respiratory/Chest: No Respiratory Distress, Lungs Clear, Normal Breath Sounds, No Accessory Muscle Use, Chest Non-Tender Cardiovascular: Normal Peripheral Pulses, Regular Rate, Rhythm, No Edema, No Gallop, No JVD, No Murmur, No Rub GI/Abdominal: Normal Bowel Sounds, Soft, Non-Tender, No Distention, No Abnormal Bruit, No Mass Back Exam: Normal Inspection, Full Range of Motion Extremities: Normal Inspection, Normal Range of Motion, Non-Tender, No Pedal Edema, Normal Capillary Refill Neurological: Alert, Oriented, CN II-XII Intact, Normal Cognition #1 Interpretation EKG Date: 09/27/20 Time: 22:22 Rhythm: NSR Rate (Beats/Min): 76 [place]: Normal P-Wave: Present QRS: Normal ST-T: Normal QT: Normal Comparison: No Change EKG Interpretation Comments: NSR No acute changes Course - Vital Signs Text/Narrative:: Labs/EKG/result was reviewed and discussed with patient and her grand daughter Last Recorded V/S: Last Vital Signs Temp 36.6 C 09/27/20 22:52 Pulse 79 09/27/20 23:11 Resp 18 09/27/20 22:52 BP 126/61 09/27/20 23:11 Pulse Ox 98 09/27/20 22:52 - Orders/Labs/Meds Orders: Active Orders 24 hr Category Date Time Status EKG 12 Lead [EK] Routine Ther 09/27/20 22:23 Ordered Labs: Laboratory Tests 09/27/20 09/27/20 09/27/20 Range/Units 22:40 22:40 22:40 WBC 8.0 (3.0-10.3) x10-3/uL RBC 4.05 (3.60-5.20) x10(6)uL Hgb 11.6 (11.4-15.5) g/dL Hct 35.0 (34.2-48.2) % MCV 86.2 (76.7-100.5) fL MCH 28.6 (23.9-33.9) pg MCHC 33.2 (31.9-34.8) g/dL RDW 14.4 (12.3-16.5) % Plt Count 268 (151-488) x10(3)uL MPV 8.5 (7.1-12.4) fL Neut % (Auto) 47.2 (30.8-76.2) % Lymph % (Auto) 32.0 (18.4-52.1) % [place] % (Auto) 14.4 (4.4-15.7) % Eos % (Auto) 5.9 (0.6-8.1) % Baso % (Auto) 0.5 (0.2-1.5) % Neut # (Auto) 3.8 (1.5-6.3) x10-3/uL Lymph # (Auto) 2.6 (1.0-4.4) x10-3/uL [place] # (Auto) 1.2 H (0.3-1.0) x10-3/uL Eos # (Auto) 0.5 (0.0-0.8) x10-3/uL Baso # (Auto) 0.0 (0.0-0.1) x10-3/uL Sodium 133 L (135-145) mmol/L Potassium 4.3 (3.5-5.3) mmol/L Chloride 95 L D (100-110) mmol/L Carbon Dioxide 24 (21-32) mmol/L BUN 14 (7-18) mg/dL Creatinine 0.9 (0.55-1.02) mg/dL Est Cr Clr Drug Dosing TNP Estimated GFR (MDRD) > 60 (>60) BUN/Creatinine Ratio 15.6 (9-20) Glucose 235 H (80-116) mg/dL Calcium 8.2 L (8.6-10.2) mg/dL Total Bilirubin 0.3 (0.1-1.3) mg/dL AST 17 D (5-25) IU/L ALT 15 D (12-36) U/L Alkaline Phosphatase 67 (56-112) IU/L Troponin I 7.2 (4.0-60.3) pg/mL Total Protein 7.0 (6.0-8.0) g/dL Albumin 3.1 L (3.2-4.6) g/dL Globulin 3.9 g/dL Albumin/Globulin Ratio 0.8 Meds: Medications Discontinued Medications Generic Name Dose Route Start Last Admin Trade Name Freq PRN Reason Stop Dose Admin Nitroglycerin 0.4 mg 09/27/20 22:24 Nitroglycerin 0.4 Mg Tab.Sl SL Q5M PRN Chest Pain Departure - Departure Time of Disposition: 12:30 Disposition: Home, Self-Care 01 Condition: Good Clinical Impression: GERD (gastroesophageal reflux disease), Atypical chest pain Instructions: Food Choices for Gastroesophageal Reflux Disease, Adult, Nonspecific Chest Pain, Adult, [id number] Referrals: Eric Lopez MD [Primary Care Provider] - Forms: ED Department Discharge Additional Instructions: Please read discharge instructions on acid reflux/GERD and atypical chest pain Take claudia 2-3 tablets chew and swaloow with lukewarm water whenever you have stomach pain Follow up as needed Sepsis Event Note (ED) - Evaluation Sepsis Screening Result: No Definite Risk - Focused Exam Vital Signs: Vital Signs Temp Pulse Resp BP Pulse Ox 09/27/20 23:11 79 126/61 09/27/20 22:52 36.6 C 78 18 130/94 H 98 09/27/20 22:51 78 118/59 L 97 09/27/20 22:41 77 16 121/63 97 - My Orders Last 24 Hours: My Active Orders 09/27/20 22:23 EKG 12 Lead [EK] Routine - Assessment/Plan Last 24 Hours: My Active Orders 09/27/20 22:23 EKG 12 Lead [EK] Routine
== END 2020-09-27 23:49 | disposition home or self-care (01) ==
LOC: FB.ED 22:20
DX: K21.9 Gastro-esophageal reflux disease without esophagitis (principal); I11.0 Hypertensive heart disease with heart failure; I50.9 Heart failure, unspecified; E78.00 Pure hypercholesterolemia, unspecified; E11.9 Type 2 diabetes mellitus without complications; E20.9 Hypoparathyroidism, unspecified; Z88.0 Allergy status to penicillin; Z88.8 Allergy status to other drugs, medicaments and biological substances; Z79.84 Long term (current) use of oral hypoglycemic drugs; Z79.899 Other long term (current) drug therapy
CPT/HCPCS: 36415; 80053; 84484; 85025; 93005; 99285-25

== ENCOUNTER 2022-04-20 21:13 | Emergency (ER) | payer MEDICARE, OTHER, MEDICAID ==
[2022-04-20] MEDS ORDERED: Acetaminophen/HYDROcodone 325-5 MG Tab PO ONE (21:14)
[2022-04-20 21:38] VITALS: BP 115/56; PULSE 76
[2022-04-20] MEDS ORDERED: Gabapentin 300 MG Cap PO ONE (21:41)
[2022-04-20] MEDS ORDERED: Sodium Chloride 0.9% 10 ML Syringe FLUSH PRN (21:51)
[2022-04-20] MEDS ORDERED: HYDROmorphone 2 MG/ML SDV IVPUSH ONE (22:11)
[2022-04-20 22:12] LABS: ESTIMATED GFR 65 mL/min (>60)
[2022-04-20] MEDS ORDERED: Sodium Chloride 0.9% 1,000 ML IV SCH (22:30)
[2022-04-20] MEDS ORDERED: Iopamidol 755 Mg/ML 100 ML Bottle IV ONE (22:52)
[2022-04-28 16:12] LABS: METHYLMALONIC ACID, SERUM 160 nmol/L (0-378)
== END 2022-04-21 00:45 | disposition home or self-care (01) ==
LOC: FB.ED 21:13
DX: M79.602 Pain in left arm (principal); I11.0 Hypertensive heart disease with heart failure; I50.9 Heart failure, unspecified; E78.00 Pure hypercholesterolemia, unspecified; E11.9 Type 2 diabetes mellitus without complications; Z88.6 Allergy status to analgesic agent; Z88.0 Allergy status to penicillin; Z79.899 Other long term (current) drug therapy; Z79.84 Long term (current) use of oral hypoglycemic drugs
CPT/HCPCS: 36415; 71260; 73201; 74160; 80048; 83921; 85027; 85379; 86140; 96361; 96374; 99284; A9270; J1170; J7030; Q9967

== ENCOUNTER 2022-12-20 17:00 | Emergency (ER) | payer MEDICARE, OTHER, MEDICAID ==
[2022-12-20] MEDS ORDERED: Sodium Chloride 0.9% 10 ML Syringe FLUSH PRN (17:06)
[2022-12-20] MEDS: metroNIDAZOLE/Normal Saline 500 MG in Premix Bag 1 BAG IV SCH (17:41)
[2022-12-20 18:15] LABS: BILIRUBIN,URINE SMALL (NEGATIVE); GLUCOSE,URINE >1000 mg/dL (NORMAL); KETONES,URINE NEGATIVE (NEGATIVE); LEUKOCYTE ESTERASE,URINE LARGE (NEGATIVE); NITRITE,URINE NEGATIVE (NEGATIVE); OCCULT BLOOD,URINE MODERATE (NEGATIVE); PROTEIN,URINE TRACE mg/dL (NEGATIVE); UROBILINOGEN,URINE NORMAL (NEGATIVE)
[2022-12-20 18:21] LABS: APPEARANCE,URINE CLEAR (CLEAR); BACTERIA,URINE MANY (NS); COLOR,URINE YELLOW (YELLOW); RBC,URINE 0-5 (0-5); SQUAMOUS EPITHELIAL CELLS,UR FEW (NS,R,O); WBC,URINE 20-30 (0-5)
[2022-12-20] MEDS: Ciprofloxacin in D5W 400 MG in Premix Bag 1 BAG IV SCH ×2 (18:24)
[2022-12-20] MEDS: LORazepam 0.5 MG Tab PO ONE (18:33)
[2022-12-20] MEDS: ClonazePAM 0.5 MG Tab PO ONE (19:24)
[2022-12-20 19:47] VITALS: BP 97/50; PULSE 72
== END 2022-12-20 19:46 ==
LOC: FB.ED 17:00
DX: K57.92 Diverticulitis of intestine, part unspecified, without perforation or abscess without bleeding (principal); K21.9 Gastro-esophageal reflux disease without esophagitis; F41.1 Generalized anxiety disorder; I11.0 Hypertensive heart disease with heart failure; I50.9 Heart failure, unspecified; E11.9 Type 2 diabetes mellitus without complications; E78.00 Pure hypercholesterolemia, unspecified; Z88.0 Allergy status to penicillin; Z88.6 Allergy status to analgesic agent; Z79.899 Other long term (current) drug therapy; Z79.84 Long term (current) use of oral hypoglycemic drugs
CPT/HCPCS: 36415; 81001; 83605; 87040; 87086; 96365; 96367; 99284; A9270; J0744; J3490; 74177; Q9967

== ENCOUNTER 2023-01-02 11:17 | Emergency (ER) | payer MEDICARE, OTHER, MEDICAID ==
[2023-01-02] MEDS ORDERED: Sodium Chloride 0.9% 10 ML Syringe FLUSH PRN (11:44)
[2023-01-02] MEDS ORDERED: Furosemide 40 MG/4 ML VIAL IVPUSH ONE (11:47)
[2023-01-02] MEDS ORDERED: Metolazone 2.5 MG Tab PO ONE (11:47)
[2023-01-02 12:08] LABS: BASOPHILS ABSOLUTE AUTO 0.1 x10-3/uL (0.0-0.1); BASOPHILS PERCENT AUTO 0.5 % (0.2-1.5); EOSINOPHILS ABSOLUTE AUTO 0.1 x10-3/uL (0.0-0.8); HEMATOCRIT 34.8 % (34.2-48.2); HEMOGLOBIN 11.5 g/dL (11.4-15.5); LYMPHOCYTES ABSOLUTE AUTO 1.3 x10-3/uL (1.0-4.4); LYMPHOCYTES PERCENT AUTO 11.1 % (18.4-52.1); MEAN CORPUSCULAR HEMOGLOBIN 27.3 pg (23.9-33.9); MEAN CORPUSCULAR VOLUME 82.6 fL (76.7-100.5); MEAN PLATELET VOLUME 7.6 fL (7.1-12.4); MONOCYTES ABSOLUTE AUTO 1.4 x10-3/uL (0.3-1.0); MONOCYTES PERCENT AUTO 12.2 % (4.4-15.7); NEUTROPHILS ABSOLUTE AUTO 8.7 x10-3/uL (1.5-6.3); NEUTROPHILS PERCENT AUTO 75.2 % (30.8-76.2); PLATELET COUNT,PLT 455 x10(3)uL (151-488); RED BLOOD CELL COUNT 4.22 x10(6)uL (3.60-5.20); RED CELL DISTRIBUTION WIDTH 15.6 % (12.3-16.5); WHITE BLOOD CELL COUNT,WBC 11.5 x10-3/uL (3.0-10.3)
[2023-01-02 12:14] LABS: BLOOD UREA NITROGEN,BUN 7 mg/dL (7-18); BUN/CREATININE RATIO 7.8 (9-20); CALCIUM 8.3 mg/dL (8.6-10.2); CARBON DIOXIDE,CO2 26 mmol/L (21-32); CHLORIDE,CL 102 mmol/L (100-110); CREATININE 0.9 mg/dL (0.55-1.02); ESTIMATED GFR 65 mL/min (>60); GLUCOSE RANDOM 195 mg/dL (80-116); POTASSIUM,K 3.5 mmol/L (3.5-5.3); SODIUM,NA 139 mmol/L (135-145)
[2023-01-02 12:20] LABS: A/G RATIO 0.7; ALANINE AMINOTRANSFERASE,ALT 15 U/L (12-36); ALBUMIN 2.9 g/dL (3.2-4.6); ALKALINE PHOSPHATASE 87 IU/L (56-112); ASPARTATE AMNIOTRANSFERASE,AST 27 IU/L (5-25); BILIRUBIN TOTAL 0.3 mg/dL (0.1-1.3); PROTEIN TOTAL,TP 6.9 g/dL (6.0-8.0)
[2023-01-02 12:26] LABS: TROPONIN I 17.6 pg/mL (4.0-60.3)
[2023-01-02 14:12] VITALS: BP 144/95; PULSE 83
== END 2023-01-02 13:45 | disposition home or self-care (01) ==
LOC: FB.ED 11:17
DX: I11.0 Hypertensive heart disease with heart failure (principal); I50.9 Heart failure, unspecified; E03.9 Hypothyroidism, unspecified; E78.00 Pure hypercholesterolemia, unspecified; E11.9 Type 2 diabetes mellitus without complications; Z88.8 Allergy status to other drugs, medicaments and biological substances; Z88.0 Allergy status to penicillin; Z79.899 Other long term (current) drug therapy; Z79.84 Long term (current) use of oral hypoglycemic drugs
CPT/HCPCS: 36415; 71045; 80053; 83880; 84443; 84484; 85025; 93005; 96374; 99285; A9270; J1940

== ENCOUNTER 2023-04-25 17:31 | Emergency (ER) | payer MEDICARE, OTHER, MEDICAID ==
[2023-04-25] MEDS ORDERED: Acetaminophen 500 MG Tab PO ONE (18:09)
[2023-04-25] MEDS ORDERED: traMADol 50 MG Tab PO ONE (18:09)
[2023-04-25 20:16] VITALS: BP 125/68; PULSE 70
== END 2023-04-25 19:55 | disposition home or self-care (01) ==
LOC: FB.ED 17:31
DX: S43.402A Unspecified sprain of left shoulder joint, initial encounter (principal); I11.0 Hypertensive heart disease with heart failure; I50.9 Heart failure, unspecified; E78.00 Pure hypercholesterolemia, unspecified; I25.2 Old myocardial infarction; E11.9 Type 2 diabetes mellitus without complications; Z79.84 Long term (current) use of oral hypoglycemic drugs; Z79.899 Other long term (current) drug therapy; Z88.0 Allergy status to penicillin; Z88.6 Allergy status to analgesic agent; W01.0XXA Fall on same level from slipping, tripping and stumbling without subsequent striking against object, initial encounter
CPT/HCPCS: 73030-LT; 73080-LT; 99283; A9270-GY

== ENCOUNTER 2024-10-08 11:51 | Inpatient (IN) | payer MEDICARE, OTHER ==
[2024-10-08] MEDS ORDERED: Furosemide 20 MG Tab PO PRN (15:36)
[2024-10-08] MEDS ORDERED: Sennosides/Docusate Sodium 50-8.6 MG Tab PO PRN (15:36)
[2024-10-08] MEDS: Acetaminophen 500 MG Tab PO SCH (16:03)
[2024-10-08] MEDS: metFORMIN 1,000 MG Tab PO SCH (17:44)
[2024-10-08] MEDS: oxyCODONE 5 MG Tab PO PRN (17:44)
[2024-10-08] MEDS: Calcium Carbonate 500 MG Tablet PO SCH (17:44)
[2024-10-08] MEDS: atorvaSTATin 20 MG Tab PO SCH (21:30)
[2024-10-08] MEDS: BALSALAZIDE 750 MG PO SCH (21:30)
[2024-10-08] MEDS: Famotidine 20 MG Tab PO SCH (21:31)
[2024-10-08] MEDS: Melatonin 3 MG Tab PO SCH (21:31)
[2024-10-08] MEDS: Enoxaparin 30 MG/0.3 ML Syringe SUBCUT SCH (21:31)
[2024-10-09] MEDS: Pantoprazole 40 MG Tab.CR PO SCH (05:09)
[2024-10-09] MEDS: Levothyroxine 75 MCG Tab PO SCH (05:13)
[2024-10-09] MEDS: Spironolactone 25 MG Tab PO SCH (08:34)
[2024-10-09] MEDS: Furosemide 20 MG Tab PO SCH (08:35)
[2024-10-09] MEDS: glipiZIDE 2.5 MG Tab.ER PO SCH (08:35)
[2024-10-09] MEDS: Empagliflozin 25 MG Tab PO SCH (08:35)
[2024-10-09] MEDS: Polyethylene Glycol 3350 Powder 17 GM Packet PO SCH (08:36)
[2024-10-09] MEDS: Saxagliptin 2.5 MG Tab PO SCH (08:36)
[2024-10-09] MEDS: FLUoxetine 10 MG Cap PO SCH (08:36)
[2024-10-09] MEDS: Cyanocobalamin (Vitamin B12) 1,000 MCG Tab PO SCH (08:37)
[2024-10-09] MEDS: Multivitamins with Iron/Calcium/Folic Acid/Minerals Tab PO SCH (08:38)
[2024-10-09] MEDS: Cholecalciferol (Vitamin D3) 25 MCG Tab PO SCH (08:38)
[2024-10-09] MEDS: Metoprolol Succinate 100 MG Tab.ER PO SCH (08:38)
[2024-10-13] MEDS ORDERED: Furosemide 20 MG Tab PO PRN (08:54)
[2024-10-13] MEDS: Loperamide 2 MG Cap PO PRN (09:46)
[2024-10-17] MEDS: Metoprolol Succinate 50 MG Tab.ER PO SCH (09:47)
[2024-10-19 14:55] LABS: HEMATOCRIT 30.5 % (34.2-48.2); HEMOGLOBIN 9.8 g/dL (11.4-15.5)
[2024-10-20] MEDS: Lidocaine 4% Patch TOP PRN (03:23)
[2024-10-20 06:33] LABS: BASOPHILS ABSOLUTE AUTO 0.1 x10-3/uL (0.0-0.1); BASOPHILS PERCENT AUTO 0.9 % (0.2-1.5); EOSINOPHILS ABSOLUTE AUTO 0.4 x10-3/uL (0.0-0.8); EOSINOPHILS PERCENT AUTO 4.4 % (0.6-8.1); HEMATOCRIT 29.4 % (34.2-48.2); HEMOGLOBIN 9.7 g/dL (11.4-15.5); LYMPHOCYTES ABSOLUTE AUTO 1.8 x10-3/uL (1.0-4.4); LYMPHOCYTES PERCENT AUTO 18.7 % (18.4-52.1); MEAN CORPUSCULAR HEMOGLOBIN 28.7 pg (23.9-33.9); MEAN CORPUSCULAR HGB CONC 32.9 g/dL (31.9-34.8); MEAN CORPUSCULAR VOLUME 87.2 fL (76.7-100.5); MONOCYTES ABSOLUTE AUTO 1.3 x10-3/uL (0.3-1.0); MONOCYTES PERCENT AUTO 14.1 % (4.4-15.7); NEUTROPHILS ABSOLUTE AUTO 5.8 x10-3/uL (1.5-6.3); NEUTROPHILS PERCENT AUTO 61.9 % (30.8-76.2); PLATELET COUNT,PLT 620 x10(3)uL (151-488); RED CELL DISTRIBUTION WIDTH 17.9 % (12.3-16.5); WHITE BLOOD CELL COUNT,WBC 9.4 x10-3/uL (3.0-10.3)
[2024-10-20 06:46] LABS: RED BLOOD CELL COUNT 3.37 x10(6)uL (3.60-5.20)
[2024-10-20] MEDS ORDERED: Triamcinolone Acetonide 0.1% Crm 15 GM Tube TOP PRN (11:15)
[2024-10-20] MEDS: oxyCODONE 5 MG Tab PO PRN (13:20)
[2024-10-22] MEDS ORDERED: oxyCODONE 5 MG Tab PO PRN (08:59)
[2024-10-22] MEDS: Saxagliptin 2.5 MG Tab PO SCH (10:06)
[2024-10-22 13:03] VITALS: BP 114/57; PULSE 80
== END 2024-10-22 12:53 | disposition home or self-care (01) | DRG 948 ==
LOC: FB.MS 12:54
PROVIDERS: ADMIT Internal Medicine; ATTEND Internal Medicine
DX: R53.81 Other malaise (principal); S72.009D Fracture of unspecified part of neck of unspecified femur, subsequent encounter for closed fracture with routine healing; H91.90 Unspecified hearing loss, unspecified ear; H54.7 Unspecified visual loss; H02.889 Meibomian gland dysfunction of unspecified eye, unspecified eyelid; I50.9 Heart failure, unspecified; I11.0 Hypertensive heart disease with heart failure; E78.00 Pure hypercholesterolemia, unspecified; J45.909 Unspecified asthma, uncomplicated; K21.9 Gastro-esophageal reflux disease without esophagitis; K58.9 Irritable bowel syndrome, unspecified; G43.909 Migraine, unspecified, not intractable, without status migrainosus; F41.9 Anxiety disorder, unspecified; F32.A Depression, unspecified; E11.9 Type 2 diabetes mellitus without complications; E20.9 Hypoparathyroidism, unspecified; Z88.0 Allergy status to penicillin; Z79.84 Long term (current) use of oral hypoglycemic drugs; Z79.899 Other long term (current) drug therapy; Z88.8 Allergy status to other drugs, medicaments and biological substances; Z98.49 Cataract extraction status, unspecified eye; Z90.49 Acquired absence of other specified parts of digestive tract; Z98.891 History of uterine scar from previous surgery; Z96.649 Presence of unspecified artificial hip joint; Z90.10 Acquired absence of unspecified breast and nipple; Z98.890 Other specified postprocedural states
CPT/HCPCS: 36415; 72195; 73502-LT; 85014; 85018; 85025; 86140; 94150; 97110-GO; 97110-GP; 97112-GP; 97116-GP; 97161-GP; 97165-GO; 97530-GP; 97535-GO; 99304; 99307; 99308; 99315; A9270-GY; J1650

== ENCOUNTER 2024-11-25 13:25 | Inpatient (IN) | payer MEDICARE, OTHER ==
[2024-11-25] MEDS ORDERED: Melatonin 3 MG Tab PO PRN (14:14)
[2024-11-25] MEDS ORDERED: Acetaminophen 325 MG Tab PO PRN (14:14)
[2024-11-25] MEDS ORDERED: Ondansetron 4 MG Tab.DIS PO PRN (14:14)
[2024-11-25] MEDS ORDERED: Bisacodyl 5 MG Tab PO PRN (14:14)
[2024-11-25] MEDS: metroNIDAZOLE 500 MG Tab PO SCH (15:37)
[2024-11-25] MEDS: BALSALAZIDE 750 MG PO SCH (15:37)
[2024-11-25] MEDS: Calcium Carbonate 500 MG Tablet PO SCH (17:28)
[2024-11-25] MEDS: metFORMIN 1,000 MG Tab PO SCH (17:28)
[2024-11-25] MEDS: Sacubitril/Valsartan 24 MG-26 MG Tab PO SCH (20:22)
[2024-11-25] MEDS: Apixaban 5 MG Tab PO SCH (20:22)
[2024-11-25] MEDS: Famotidine 20 MG Tab PO SCH (20:23)
[2024-11-25] MEDS: atorvaSTATin 20 MG Tab PO SCH (20:23)
[2024-11-25] MEDS: hydrOXYzine Pamoate 25 MG Cap PO SCH (20:23)
[2024-11-26] MEDS: Levothyroxine 100 MCG Tab PO SCH (05:55)
[2024-11-26] MEDS: Pantoprazole 40 MG Tab.CR PO SCH (05:55)
[2024-11-26] MEDS: Spironolactone 25 MG Tab PO SCH (09:06)
[2024-11-26] MEDS: glipiZIDE 2.5 MG Tab.ER PO SCH (09:07)
[2024-11-26] MEDS: Empagliflozin 25 MG Tab PO SCH (09:07)
[2024-11-26] MEDS: Furosemide 40 MG Tab PO SCH (09:07)
[2024-11-26] MEDS: Cholecalciferol (Vitamin D3) 25 MCG Tab PO SCH (09:08)
[2024-11-26] MEDS: FLUoxetine 10 MG Cap PO SCH (09:08)
[2024-11-26] MEDS: Saxagliptin 2.5 MG Tab PO SCH (09:08)
[2024-11-26] MEDS: Multivitamins with Iron/Calcium/Folic Acid/Minerals Tab PO SCH (09:08)
[2024-11-26] MEDS: Cyanocobalamin (Vitamin B12) 1,000 MCG Tab PO SCH (09:08)
[2024-11-26] MEDS: Metoprolol Succinate 25 MG Tab.ER PO SCH (09:09)
[2024-11-26] MEDS: cefTRIAXone 2 GM Vial IV SCH (09:14)
[2024-11-27] MEDS: Sodium Chloride 0.9% 500 ML IV ONE ×2 (15:34→16:35)
[2024-11-27 15:39] LABS: BASOPHILS ABSOLUTE AUTO 0.1 x10-3/uL (0.0-0.1); EOSINOPHILS ABSOLUTE AUTO 0.2 x10-3/uL (0.0-0.8); EOSINOPHILS PERCENT AUTO 2.6 % (0.6-8.1); HEMATOCRIT 31.7 % (34.2-48.2); HEMOGLOBIN 10.5 g/dL (11.4-15.5); LYMPHOCYTES ABSOLUTE AUTO 2.3 x10-3/uL (1.0-4.4); MEAN CORPUSCULAR HEMOGLOBIN 26.1 pg (23.9-33.9); MEAN CORPUSCULAR VOLUME 79.3 fL (76.7-100.5); MEAN PLATELET VOLUME 7.8 fL (7.1-12.4); MONOCYTES ABSOLUTE AUTO 1.3 x10-3/uL (0.3-1.0); MONOCYTES PERCENT AUTO 14.1 % (4.4-15.7); NEUTROPHILS PERCENT AUTO 56.3 % (30.8-76.2); PLATELET COUNT,PLT 627 x10(3)uL (151-488); RED CELL DISTRIBUTION WIDTH 20.7 % (12.3-16.5); WHITE BLOOD CELL COUNT,WBC 8.9 x10-3/uL (3.0-10.3)
[2024-11-27 15:42] LABS: BLOOD UREA NITROGEN,BUN 9 mg/dL (7-18); BUN/CREATININE RATIO 6.4 (9-20); CALCIUM 8.2 mg/dL (8.6-10.2); CARBON DIOXIDE,CO2 27 mmol/L (21-32); CHLORIDE,CL 101 mmol/L (100-110); CREATININE 1.4 mg/dL (0.55-1.02); EST CRCL DRUG DOSING (CG) 22.25 mL/min; ESTIMATED GFR 38 mL/min (>60); GLUCOSE RANDOM 211 mg/dL (80-116); SODIUM,NA 139 mmol/L (135-145)
[2024-11-27] MEDS: Potassium Chloride 20 MEQ Tab.ER PO ONE (15:59)
[2024-11-27] MEDS: Sodium Chloride 0.9% 10 ML SDV IV ONE (16:41)
[2024-11-28] MEDS: Metoprolol Tartrate 5 MG/5 ML SDV IVPUSH ONE (08:25)
[2024-11-29] MEDS: Metoprolol Succinate 25 MG Tab.ER PO ONE (16:00)
[2024-11-29] MEDS ORDERED: Metoprolol Succinate 25 MG Tab.ER PO SCH (21:00)
[2024-11-29] MEDS: Metoprolol Succinate 50 MG Tab.ER PO SCH (21:45)
[2024-12-01] MEDS: Sodium Chloride 0.9% 500 ML IV ONE (11:57)
[2024-12-01 22:15] LABS: HEMOGLOBIN 10.5 g/dL (11.4-15.5); MEAN CORPUSCULAR HEMOGLOBIN 26.1 pg (23.9-33.9); MEAN CORPUSCULAR HGB CONC 32.9 g/dL (31.9-34.8); MEAN CORPUSCULAR VOLUME 79.4 fL (76.7-100.5); MEAN PLATELET VOLUME 7.7 fL (7.1-12.4); PLATELET COUNT,PLT 527 x10(3)uL (151-488); RED BLOOD CELL COUNT 4.03 x10(6)uL (3.60-5.20); RED CELL DISTRIBUTION WIDTH 21.4 % (12.3-16.5); WHITE BLOOD CELL COUNT,WBC 8.3 x10-3/uL (3.0-10.3)
[2024-12-01 22:19] LABS: BLOOD UREA NITROGEN,BUN 8 mg/dL (7-18); BUN/CREATININE RATIO 8.9 (9-20); CALCIUM 8.7 mg/dL (8.6-10.2); CARBON DIOXIDE,CO2 24 mmol/L (21-32); CHLORIDE,CL 102 mmol/L (100-110); CREATININE 0.9 mg/dL (0.55-1.02); EST CRCL DRUG DOSING (CG) 34.62 mL/min; ESTIMATED GFR 64 mL/min (>60); GLUCOSE RANDOM 119 mg/dL (80-116); POTASSIUM,K 3.9 mmol/L (3.5-5.3); SODIUM,NA 136 mmol/L (135-145)
[2024-12-01 22:24] LABS: MAGNESIUM 1.1 mg/dL (1.8-2.5)
[2024-12-01 22:31] LABS: ANISOCYTOSIS FEW; BASOPHILS PERCENT MAN 2 % (0-2); EOSINOPHILS PERCENT MAN 15 % (0-5); LYMPHOCYTES PERCENT MAN 27 % (13-37); MONOCYTES PERCENT MAN 12 % (4-12); SEG NEUTROPHILS PERCENT MAN 44 % (46-82)
[2024-12-01] MEDS: Magnesium Oxide 400 MG Tab PO ONE (23:43)
[2024-12-01] MEDS: Sodium Chloride 0.9% 10 ML Syringe FLUSH PRN (23:45)
[2024-12-01] MEDS: Magnesium Sulfate 2 GM/50 mL 2 GM in Premix Bag 1 BAG IV ONE (23:53)
[2024-12-02 07:01] LABS: BASOPHILS ABSOLUTE AUTO 0.1 x10-3/uL (0.0-0.1); BASOPHILS PERCENT AUTO 1.2 % (0.2-1.5); EOSINOPHILS ABSOLUTE AUTO 0.8 x10-3/uL (0.0-0.8); EOSINOPHILS PERCENT AUTO 9.8 % (0.6-8.1); HEMATOCRIT 29.7 % (34.2-48.2); LYMPHOCYTES ABSOLUTE AUTO 1.9 x10-3/uL (1.0-4.4); LYMPHOCYTES PERCENT AUTO 23.6 % (18.4-52.1); MEAN CORPUSCULAR HEMOGLOBIN 26.7 pg (23.9-33.9); MEAN CORPUSCULAR HGB CONC 33.6 g/dL (31.9-34.8); MEAN CORPUSCULAR VOLUME 79.6 fL (76.7-100.5); MEAN PLATELET VOLUME 7.7 fL (7.1-12.4); MONOCYTES ABSOLUTE AUTO 1.2 x10-3/uL (0.3-1.0); MONOCYTES PERCENT AUTO 14.8 % (4.4-15.7); NEUTROPHILS ABSOLUTE AUTO 4.2 x10-3/uL (1.5-6.3); NEUTROPHILS PERCENT AUTO 50.6 % (30.8-76.2); RED CELL DISTRIBUTION WIDTH 20.9 % (12.3-16.5); WHITE BLOOD CELL COUNT,WBC 8.2 x10-3/uL (3.0-10.3)
[2024-12-02 07:05] LABS: A/G RATIO 0.5; ALANINE AMINOTRANSFERASE,ALT 11 U/L (12-36); ALBUMIN 2.4 g/dL (3.2-4.6); ALKALINE PHOSPHATASE 152 IU/L (56-112); ASPARTATE AMNIOTRANSFERASE,AST 29 IU/L (5-25); BILIRUBIN TOTAL 0.3 mg/dL (0.1-1.3); BLOOD UREA NITROGEN,BUN 8 mg/dL (7-18); CALCIUM 8.6 mg/dL (8.6-10.2); CARBON DIOXIDE,CO2 25 mmol/L (21-32); CHLORIDE,CL 102 mmol/L (100-110); CREATININE 0.8 mg/dL (0.55-1.02); EST CRCL DRUG DOSING (CG) 38.94 mL/min; ESTIMATED GFR 74 mL/min (>60); GLUCOSE RANDOM 146 mg/dL (80-116); PROTEIN TOTAL,TP 7.2 g/dL (6.0-8.0); SODIUM,NA 135 mmol/L (135-145)
[2024-12-02 07:17] LABS: RED BLOOD CELL COUNT 3.74 x10(6)uL (3.60-5.20)
[2024-12-02 07:18] LABS: PLATELET COUNT,PLT 533 x10(3)uL (151-488)
[2024-12-02] MEDS: Magnesium Oxide 400 MG Tab PO SCH (08:53)
[2024-12-02 13:33] VITALS: BP 105/66; PULSE 84
== END 2024-12-02 13:50 | DRG 948 ==
LOC: UNDOADMIN 13:25 → FB.MS 13:25
PROVIDERS: ADMIT Family Medicine; ATTEND Internal Medicine
DX: R53.81 Other malaise (principal); T81.30XA Disruption of wound, unspecified, initial encounter; I50.20 Unspecified systolic (congestive) heart failure; Z66 Do not resuscitate; H91.90 Unspecified hearing loss, unspecified ear; H54.7 Unspecified visual loss; H02.889 Meibomian gland dysfunction of unspecified eye, unspecified eyelid; I11.0 Hypertensive heart disease with heart failure; E78.00 Pure hypercholesterolemia, unspecified; J45.909 Unspecified asthma, uncomplicated; K21.9 Gastro-esophageal reflux disease without esophagitis; B99.9 Unspecified infectious disease; K58.9 Irritable bowel syndrome, unspecified; I48.0 Paroxysmal atrial fibrillation; G43.909 Migraine, unspecified, not intractable, without status migrainosus; R56.9 Unspecified convulsions; E03.9 Hypothyroidism, unspecified; F41.9 Anxiety disorder, unspecified; F32.A Depression, unspecified; E11.9 Type 2 diabetes mellitus without complications; E20.9 Hypoparathyroidism, unspecified; Z85.3 Personal history of malignant neoplasm of breast; Z98.49 Cataract extraction status, unspecified eye; Z90.49 Acquired absence of other specified parts of digestive tract; Z98.890 Other specified postprocedural states; Z98.891 History of uterine scar from previous surgery; Z90.10 Acquired absence of unspecified breast and nipple; Z96.649 Presence of unspecified artificial hip joint; Z79.899 Other long term (current) drug therapy; Z88.8 Allergy status to other drugs, medicaments and biological substances; Z88.0 Allergy status to penicillin; Z79.84 Long term (current) use of oral hypoglycemic drugs
CPT/HCPCS: 36415; 80048; 80053; 82947; 83735; 85025; 93005; 93010; 97110-GP; 97161-GP; 97165-GO; 97530-GP; 97535-GO; 99305; 99307; 99308; 99315; A9270-GY; J0696; J3475; J7040

== ENCOUNTER 2025-02-18 18:48 | Emergency (ER) | payer MEDICARE, OTHER, MEDICAID ==
[2025-02-18] MEDS ORDERED: Ondansetron 4 MG Tab.DIS PO ONE (18:49)
[2025-02-18] MEDS ORDERED: Acetaminophen/oxyCODONE 325-5 MG Tab PO ONE (18:49)
[2025-02-18 19:18] VITALS: BP 115/61; PULSE 76
[2025-02-18] MEDS ORDERED: Sodium Chloride 0.9% 10 ML Syringe FLUSH PRN (19:18)
[2025-02-18 19:51] LABS: BASOPHILS ABSOLUTE AUTO 0.0 x10-3/uL (0.0-0.1); BASOPHILS PERCENT AUTO 0.4 % (0.2-1.5); EOSINOPHILS ABSOLUTE AUTO 0.2 x10-3/uL (0.0-0.8); EOSINOPHILS PERCENT AUTO 2.0 % (0.6-8.1); LYMPHOCYTES ABSOLUTE AUTO 3.0 x10-3/uL (1.0-4.4); LYMPHOCYTES PERCENT AUTO 38.0 % (18.4-52.1); MEAN PLATELET VOLUME 7.6 fL (7.1-12.4); MONOCYTES ABSOLUTE AUTO 1.1 x10-3/uL (0.3-1.0); MONOCYTES PERCENT AUTO 14.4 % (4.4-15.7); NEUTROPHILS ABSOLUTE AUTO 3.6 x10-3/uL (1.5-6.3); NEUTROPHILS PERCENT AUTO 45.2 % (30.8-76.2); PLATELET COUNT,PLT 417 x10(3)uL (151-488); RED CELL DISTRIBUTION WIDTH 19.1 % (12.3-16.5); WHITE BLOOD CELL COUNT,WBC 8.0 x10-3/uL (3.0-10.3)
[2025-02-18 19:53] LABS: BLOOD UREA NITROGEN,BUN 41 mg/dL (7-18); CARBON DIOXIDE,CO2 24 mmol/L (21-32); CHLORIDE,CL 100 mmol/L (100-110); CREATININE 1.5 mg/dL (0.55-1.02); EST CRCL DRUG DOSING (CG) 20.77 mL/min; ESTIMATED GFR 35 mL/min (>60); GLUCOSE RANDOM 128 mg/dL (80-116); POTASSIUM,K 3.6 mmol/L (3.5-5.3); SODIUM,NA 137 mmol/L (135-145)
[2025-02-18 19:58] LABS: RED BLOOD CELL COUNT 4.31 x10(6)uL (3.60-5.20)
[2025-02-18 19:59] LABS: A/G RATIO 0.7; ALANINE AMINOTRANSFERASE,ALT 18 U/L (12-36); ASPARTATE AMNIOTRANSFERASE,AST 24 IU/L (5-25); BILIRUBIN TOTAL 0.2 mg/dL (0.1-1.3); PROTEIN TOTAL,TP 8.4 g/dL (6.0-8.0)
[2025-02-18 20:03] LABS: GLUCOSE,URINE >1000 mg/dL (NORMAL); OCCULT BLOOD,URINE NEGATIVE (NEGATIVE)
[2025-02-18 20:04] LABS: APPEARANCE,URINE CLEAR (CLEAR)
[2025-02-18] MEDS: Iopamidol 755 Mg/ML 100 ML Bottle IV ONE (21:10)
== END 2025-02-18 22:20 | disposition home or self-care (01) ==
LOC: FB.ED 18:48
DX: K52.9 Noninfective gastroenteritis and colitis, unspecified (principal); E86.0 Dehydration; N17.9 Acute kidney failure, unspecified; D64.9 Anemia, unspecified; I11.0 Hypertensive heart disease with heart failure; I50.9 Heart failure, unspecified; E78.00 Pure hypercholesterolemia, unspecified; J45.909 Unspecified asthma, uncomplicated; E11.9 Type 2 diabetes mellitus without complications; E03.9 Hypothyroidism, unspecified; Z88.6 Allergy status to analgesic agent; Z88.0 Allergy status to penicillin; Z79.84 Long term (current) use of oral hypoglycemic drugs; Z79.899 Other long term (current) drug therapy; Z79.890 Hormone replacement therapy
CPT/HCPCS: 36415; 74177; 80053; 81003; 83690; 85025; 96374; 99284; A9270; J2270; Q0162; Q9967

== ENCOUNTER 2025-04-25 01:55 | Emergency (ER) | payer MEDICARE, OTHER, MEDICAID ==
[2025-04-25] MEDS: Ondansetron 4 MG/2 ML SDV IM ONE (02:47)
[2025-04-25 02:55] VITALS: BP 133/58; PULSE 67
== END 2025-04-25 03:10 | disposition home or self-care (01) ==
LOC: FB.ED 01:55
DX: S09.90XA Unspecified injury of head, initial encounter (principal); M25.552 Pain in left hip; I11.0 Hypertensive heart disease with heart failure; I50.9 Heart failure, unspecified; E78.00 Pure hypercholesterolemia, unspecified; K21.9 Gastro-esophageal reflux disease without esophagitis; E11.9 Type 2 diabetes mellitus without complications; Z88.6 Allergy status to analgesic agent; Z88.0 Allergy status to penicillin; Z79.899 Other long term (current) drug therapy; Z79.84 Long term (current) use of oral hypoglycemic drugs; Z79.01 Long term (current) use of anticoagulants; Z90.49 Acquired absence of other specified parts of digestive tract; W01.0XXA Fall on same level from slipping, tripping and stumbling without subsequent striking against object, initial encounter; Y93.89 Activity, other specified
CPT/HCPCS: 70450; 72125; 73502; 96372; 99283; 99284; J2270; J2405

== ENCOUNTER 2025-06-06 10:25 | Observation (INO) | payer MEDICARE, OTHER ==
[2025-06-06 11:08] LABS: BASOPHILS ABSOLUTE AUTO 0.1 x10-3/uL (0.0-0.1); BASOPHILS PERCENT AUTO 0.5 % (0.2-1.5); EOSINOPHILS ABSOLUTE AUTO 0.3 x10-3/uL (0.0-0.8); EOSINOPHILS PERCENT AUTO 2.7 % (0.6-8.1); LYMPHOCYTES ABSOLUTE AUTO 3.4 x10-3/uL (1.0-4.4); LYMPHOCYTES PERCENT AUTO 35.9 % (18.4-52.1); MEAN PLATELET VOLUME 8.4 fL (7.1-12.4); MONOCYTES ABSOLUTE AUTO 1.2 x10-3/uL (0.3-1.0); MONOCYTES PERCENT AUTO 12.5 % (4.4-15.7); NEUTROPHILS ABSOLUTE AUTO 4.6 x10-3/uL (1.5-6.3); NEUTROPHILS PERCENT AUTO 48.4 % (30.8-76.2); PLATELET COUNT,PLT 313 x10(3)uL (151-488); RED CELL DISTRIBUTION WIDTH 18.5 % (12.3-16.5); WHITE BLOOD CELL COUNT,WBC 9.5 x10-3/uL (3.0-10.3)
[2025-06-06 11:11] LABS: BLOOD UREA NITROGEN,BUN 46 mg/dL (7-18); CARBON DIOXIDE,CO2 22 mmol/L (21-32); CHLORIDE,CL 103 mmol/L (100-110); CREATININE 1.8 mg/dL (0.55-1.02); EST CRCL DRUG DOSING (CG) 17.01 mL/min; ESTIMATED GFR 28 mL/min (>60); GLUCOSE RANDOM 161 mg/dL (80-116); POTASSIUM,K 4.3 mmol/L (3.5-5.3); SODIUM,NA 139 mmol/L (135-145)
[2025-06-06] MEDS: LORazepam 2 MG/ML SDV IVPUSH ONE ×2 (11:14→21:20)
[2025-06-06 11:17] LABS: A/G RATIO 0.9; ALANINE AMINOTRANSFERASE,ALT 21 U/L (12-36); ASPARTATE AMNIOTRANSFERASE,AST 32 IU/L (5-25); BILIRUBIN TOTAL 0.5 mg/dL (0.1-1.3); PROTEIN TOTAL,TP 7.3 g/dL (6.0-8.0)
[2025-06-06 11:18] LABS: RED BLOOD CELL COUNT 4.25 x10(6)uL (3.60-5.20)
[2025-06-06 11:24] LABS: LACTIC ACID 3.8 mmol/L (0.4-2.0); PRO B-TYPE NATRIUR PEPT,BNPPRO 2243 pg/mL (<=450)
[2025-06-06] MEDS: Magnesium Sulfate 2 GM/50 mL 2 GM in Premix Bag 1 BAG IV ONE (12:36)
[2025-06-06] MEDS ORDERED: 50% Dextrose in Water 50 ML Syringe IVPUSH PRN (17:18)
[2025-06-06] MEDS: Insulin Lispro 100 Unit/ML 3 ML KwikPen SUBCUT SCH (18:03)
[2025-06-06 18:44] LABS: BLOOD UREA NITROGEN,BUN 35 mg/dL (7-18); CARBON DIOXIDE,CO2 23 mmol/L (21-32); CHLORIDE,CL 108 mmol/L (100-110); CREATININE 1.4 mg/dL (0.55-1.02); EST CRCL DRUG DOSING (CG) 21.87 mL/min; ESTIMATED GFR 37 mL/min (>60); GLUCOSE RANDOM 143 mg/dL (80-116); POTASSIUM,K 3.5 mmol/L (3.5-5.3); SODIUM,NA 141 mmol/L (135-145)
[2025-06-06 18:54] LABS: LACTIC ACID 1.8 mmol/L (0.4-2.0)
[2025-06-06 21:25] LABS: GLUCOSE,URINE >1000 mg/dL (NORMAL); OCCULT BLOOD,URINE NEGATIVE (NEGATIVE)
[2025-06-06 21:34] LABS: APPEARANCE,URINE CLEAR (CLEAR); SQUAMOUS EPITHELIAL CELLS,UR FEW (NS,R,O)
[2025-06-06] MEDS: Sodium Chloride 0.9% 10 ML Syringe FLUSH PRN (23:58)
[2025-06-07 06:24] LABS: BASOPHILS ABSOLUTE AUTO 0.0 x10-3/uL (0.0-0.1); BASOPHILS PERCENT AUTO 0.7 % (0.2-1.5); EOSINOPHILS ABSOLUTE AUTO 0.3 x10-3/uL (0.0-0.8); EOSINOPHILS PERCENT AUTO 5.4 % (0.6-8.1); LYMPHOCYTES ABSOLUTE AUTO 1.9 x10-3/uL (1.0-4.4); LYMPHOCYTES PERCENT AUTO 36.7 % (18.4-52.1); MEAN PLATELET VOLUME 8.2 fL (7.1-12.4); MONOCYTES ABSOLUTE AUTO 0.7 x10-3/uL (0.3-1.0); MONOCYTES PERCENT AUTO 12.7 % (4.4-15.7); NEUTROPHILS ABSOLUTE AUTO 2.3 x10-3/uL (1.5-6.3); NEUTROPHILS PERCENT AUTO 44.5 % (30.8-76.2); PLATELET COUNT,PLT 265 x10(3)uL (151-488); RED CELL DISTRIBUTION WIDTH 19.0 % (12.3-16.5); WHITE BLOOD CELL COUNT,WBC 5.2 x10-3/uL (3.0-10.3)
[2025-06-07 06:30] LABS: BLOOD UREA NITROGEN,BUN 30 mg/dL (7-18); CARBON DIOXIDE,CO2 22 mmol/L (21-32); CHLORIDE,CL 113 mmol/L (100-110); CREATININE 1.2 mg/dL (0.55-1.02); EST CRCL DRUG DOSING (CG) 25.51 mL/min; ESTIMATED GFR 45 mL/min (>60); GLUCOSE RANDOM 87 mg/dL (80-116); POTASSIUM,K 3.8 mmol/L (3.5-5.3); SODIUM,NA 144 mmol/L (135-145)
[2025-06-07 06:38] LABS: RED BLOOD CELL COUNT 3.73 x10(6)uL (3.60-5.20)
[2025-06-07 09:12] VITALS: BP 123/58
[2025-06-07] MEDS: Cholecalciferol (Vitamin D3) 25 MCG Tab PO SCH (09:12)
[2025-06-07] MEDS: Cyanocobalamin (Vitamin B12) 1,000 MCG Tab PO SCH (09:12)
[2025-06-07 09:15] VITALS: PULSE 66
[2025-06-07] MEDS: Furosemide 40 MG/4 ML VIAL IVPUSH SCH (12:30)
[2025-06-07] MEDS: Potassium Chloride 10 MEQ Tab.ER PO ONE (13:51)
[2025-06-07] MEDS: LORazepam 2 MG/ML SDV IVPUSH PRN (13:52)
[2025-06-11 12:14] LABS: CREATININE,URINE - PER VOLUME 60 mg/dL; HOURS COLLECTED Random hr; URINE UREA NITROGEN - MG/DL 561 mg/dL
== END 2025-06-07 14:51 ==
LOC: FB.ED 10:25 → FB.MS 16:34
PROVIDERS: ADMIT Internal Medicine; ATTEND Internal Medicine
DX: R07.9 Chest pain, unspecified (principal); I11.0 Hypertensive heart disease with heart failure; I50.9 Heart failure, unspecified; E87.20 Acidosis, unspecified; R79.89 Other specified abnormal findings of blood chemistry; N17.9 Acute kidney failure, unspecified; E11.9 Type 2 diabetes mellitus without complications; R09.02 Hypoxemia; R94.31 Abnormal electrocardiogram [ECG] [EKG]; R00.1 Bradycardia, unspecified; Z88.8 Allergy status to other drugs, medicaments and biological substances; Z88.0 Allergy status to penicillin; Z93.3 Colostomy status; Z90.49 Acquired absence of other specified parts of digestive tract; Z79.01 Long term (current) use of anticoagulants; Z79.84 Long term (current) use of oral hypoglycemic drugs; Z79.899 Other long term (current) drug therapy; Z79.890 Hormone replacement therapy; Z20.822 Contact with and (suspected) exposure to COVID-19
CPT/HCPCS: 36415; 71045; 80048; 80053; 81001; 82570; 82947; 83605; 83735; 83880; 84484; 84540; 85025; 86140; 87040; 87230; 93005; 93010; 94150; 96361; 96365; 96375; 96376; 97161; 99223; 99238; 99285; A9270; G0378; J1938; J2060; J2270; J3475; J7030; U0002